=== PATIENT | male | born 1950 | race African-American/Black ===

== ENCOUNTER 2016-10-25 14:06 | Emergency (ER) | payer OTHER, MEDICAID ==
[2016-10-25 15:21] VITALS: BP 109/71; BMI 20.9
--- NOTE | 2016-10-25 15:48 | RAD ---
Abdomen, one view Indication: G-tube placement Comparison: October 05, 2015 Findings: The patient is rotated towards the right. Given these limitations, single provided AP view of the abdomen demonstrates contrast within the patient's G-tube, which appears to project over the g astric antrum. Injected contrast appears to be within the distal stomach as well as proximal small gin wel. No definite extraluminal contrast is identified on the single provided AP view. Visualized bowel gas pattern is nonobstructive. Impression: Grossly well-positioned G-tube, as detailed above. However, additional AP and oblique lana ges are recommended to confirm appropriate positioning within the gastric lumen. Reported By:
--- NOTE | 2016-10-25 16:12 | DR.AMS ---
HPI - Time Seen Time seen: 15:20 - Complaint Cheif Complaint Doctors Comments: Patient was referred from the long term for G tube placement. Chief Complaint:: g tube out and replaced with joya. staff wishes for gtube to be replaced. - Source History Provided: Assisted - Mode of Arrival Mode of Arrival: Stretcher - Timing Onset of Chief Complaint: 10/25/16 PMH - PMH Past Medical History: Yes Past Medical History: Dementia Past Medical History Comment: only could be verified by past hx on electronic record no paperwork was sent with pt Past Surgical History: Yes Surgical History: Unknown Past Surgical History Comment: gtube - Family History History of Family Medical Conditions: No Family Medical History Comment: unknown no paperwork was sent with patient - Social History Do you use any recreational Drugs:: No - infectious screening Have you traveled outside the country in the last 6 months?: No Isolation: Standard ROS - Review of Systems Constitutional: No Symptoms Reported Eyes: No Symptoms Reported ENTM: No Symptoms Reported Respiratoy: No Symptoms Reported Cardiovascular: No Symptoms Reported Gastrointestinal/Abdominal: No Symptoms Reported Genitourinary: No Symptoms Reported Neurological: No Symptoms Reported Musculoskeletal: No Symptoms Reported Integumentary: Lesions (macular hypopigmented lesion of face) Hematologic/Lymphatic: No Symptoms Reported Endocrine: No Symptoms Reported Psychiatric: No Symptoms Reported All Other Systems: Reviewed and Negative PE - Vitals Vital Signs: Temp Pulse Resp BP Pulse Ox 10/25/16 14:35 98.6 F 90 12 109/71 97 10/04/15 23:08 114/75 - General Limitations: No Limitations General Appearance: Alert, In No Apparent Distress - Head Head Exam: Normal Inspection, Atraumatic - Eyes Eye exam: Normal Appearance, PERRL, EOMI Pupils: Regular, Round: Bilateral - ENT ENT Exam: Normal Exam, Normal Oropharynx External Ear Exam: Normal External Inspection TM/Canal Exam: Bilateral Normal Nose Exam: Normal Nose Exam Mouth Exam: Normal Inspection Throat Exam: Normal Inspection - Neck Neck Exam: Normal Inspection, Full ROM - Chest Chest Inspection: Normal Inspection - Respiratory Respiratory Exam: Bilateral Clear to Auscultation - Cardiovascular Cardiovascular Exam: Regular Rate, Normal Rhythm - Abdominal Exam Abdominal Exam: Normal Inspection, Normal Bowel Sounds Abdominal Tenderness: negative: RUQ, RLQ, LUQ, LLQ, Epigastrium, Suprapubic, Diffuse, Mild, Moderate, Severe, Other - Extremities Extremities Exam: Normal Inspection, Full ROM - Back Back Exam: Normal Inspection, Full ROM - Neurological Neurological Exam: Alert, Oriented X3, CN II-XII Intact Motor Strength - LUE: 2/5 DTR: achilles tendon (L): 2+ - Psychological Psychiatric Exam: Normal Affect - Skin Skin Exam: Warm, Dry Course - Treatment Treatment: Gastrostomy tube replaced - Diagnosis Discharge Problem: PEG (percutaneous endoscopic gastrostomy) adjustment/replacement/removal - Discharge Plan Condition: Stable - Follow ups/Referrals Follow ups/Referrals: ANGELA RENTERIA [Primary Care Provider] - 3 days - Instructions
== END 2016-10-25 16:13 | disposition home or self-care (01) ==
LOC: ER 14:06
PROC: 0D20XUZ Change Feeding Device in Upper Intestinal Tract, External Approach (ICD-10-PCS; principal; 2016-10-25)
DX: Z43.1 Encounter for attention to gastrostomy (principal)
CPT/HCPCS: 43760; 74000; 99282